=== PATIENT | female | born 1965 | race African-American/Black ===

== ENCOUNTER 2018-04-18 08:59 | Emergency (ER) | payer BC ==
[~2018-04-18] VITALS: Ht 167.6 cm; Wt 72.0 kg
[2018-04-18] MEDS ORDERED: IBUPROFEN 600MG TABLET PO ONE (11:00)
[2018-04-18 11:09] VITALS: BP 163/91
== END 2018-04-18 13:09 | disposition home or self-care (01) ==
LOC: ER 08:59
DX: S92.492A Other fracture of left great toe, initial encounter for closed fracture (principal); S80.212A Abrasion, left knee, initial encounter; W01.0XXA Fall on same level from slipping, tripping and stumbling without subsequent striking against object, initial encounter; Y93.89 Activity, other specified; Y92.89 Other specified places as the place of occurrence of the external cause
CPT/HCPCS: 73562; 73610; 73630; 99284; Z7610